=== PATIENT | female | born 1995 | race Two or more races ===

== ENCOUNTER 2020-08-07 14:18 | Emergency (ER) | payer OTHER ==
[~2020-08-07] VITALS: Ht 177.8 cm; Wt 88.9 kg
--- NOTE | 2020-08-07 14:40 | NUR ---
Pt denies any medical hx. Wears glasses at baseline. States ALBA and right eye severe blurred vision started 3 days ago. Denies black in her vision field. VAs for R eye, pt stated "I can't even see the paper."
[2020-08-07 15:28] LABS: BASOPHILS % (AUTO) 0 % (0-1); EOSINOPHILS % (AUTO) 1 % (1-7); LYMPHOCYTES % (AUTO) 18 % (22-44); MEAN CORPUSCULAR HEMOGLOBIN 28.2 pg (27.0-34.8); MEAN CORPUSCULAR HGB CONC 33.7 g/dL (32.4-35.8); MEAN PLATELET VOLUME 9.1 fL (7.4-10.4); MONOCYTES % (AUTO) 4 % (2-9); NEUTROPHILS % (AUTO) 77 % (42-75); PLATELET COUNT 229 x10^3/uL (130-400); RED BLOOD COUNT 4.82 x10^6/uL (3.82-5.3); RED CELL DISTRIBUTION WIDTH 13.1 % (9.6-15.2)
[2020-08-07 15:30] LABS: MD NO
[2020-08-07 15:40] LABS: ALBUMIN 3.8 g/dL (3.4-5.0); ANION GAP 7 mmol/L (5-15); CALCIUM 9.4 mg/dL (8.5-10.1); CHLORIDE 110 mmol/L (98-107)
[2020-08-07 15:41] LABS: CREATININE 0.98 mg/dL (0.55-1.02)
--- NOTE | 2020-08-07 16:12 | NUR ---
Pt remains in MRI.
[2020-08-07] MEDS ORDERED: GADOTERATE 10 MMOL/20ML SYR ONE (16:14)
[2020-08-07 16:55] LABS: HCT (SEDRATE) 40.6 % (34.6-47.8)
--- NOTE | 2020-08-07 17:03 | NUR ---
Optomology at bedside.
--- NOTE | 2020-08-07 17:41 | NUR ---
Law back to bedside to update pt on POC.
[2020-08-07 17:59] VITALS: BP 125/81
[2020-08-07] MEDS ORDERED: methylPREDNISolone SOD SUCC 125 MG/2 ML IV SCH (18:00)
--- NOTE | 2020-08-07 19:00 | NUR ---
Pt sitting up in bed, on laptop, no complaints.
--- NOTE | 2020-08-07 19:00 | NUR ---
Bedside report to [facility].
[2020-08-08 15:05] LABS: ANA SCREEN NEGATIVE (Negative)
== END 2020-08-07 20:12 | disposition other institution (70) ==
LOC: ED 20:00
DX: H54.61 Unqualified visual loss, right eye, normal vision left eye (principal); H46.9 Unspecified optic neuritis
CPT/HCPCS: 36415; 70543; 80048; 82040; 82164; 82607; 83520; 85025; 85549; 85651; 86038; 86140; 86255; 86592; 96365; 99284; A9575; J2930; 99285

== ENCOUNTER 2020-08-08 15:32 | Emergency (ER) | payer OTHER ==
[~2020-08-08] VITALS: Ht 177.8 cm; Wt 88.0 kg
--- NOTE | 2020-08-08 15:58 | NUR ---
Pt comes in today with requests from Dr. Raines to get brain CT, and was seen yesterday for a dose of solumedrol IV and Dr. Bar told her to come back again today for another dose. Pt reports her pain today in right eye is 4/10, yesterday was 5/10. Reports the pain mostly occurs when she moves her eye. Vision is unchanged. Dr. Raines told pt she likely has neuritis and MS.
[2020-08-08] MEDS ORDERED: SODIUM CHLORIDE FLUSH 10ML SYR IVF ONE (16:30)
--- NOTE | 2020-08-08 16:48 | NUR ---
IV started, 20 g right AC.
[2020-08-08] MEDS ORDERED: methylPREDNISolone SOD SUCC 125 MG/2 ML IVPush ONE (17:00)
--- NOTE | 2020-08-08 17:14 | NUR ---
1000 mg IV push solumedrol ordered, called pharmacy to request drip instead. Pharmacy confirming and changing order, reports they will send IV piggy back down.
--- NOTE | 2020-08-08 17:42 | NUR ---
Solumedrol drip arrived from pharmacy.
--- NOTE | 2020-08-08 17:53 | NUR ---
IV solumedrol infusion running.
[2020-08-08] MEDS ORDERED: LORazepam 1MG TABLET PO ONE (18:00)
[2020-08-08 18:30] VITALS: BP 120/67
--- NOTE | 2020-08-08 18:32 | NUR ---
solumedrol infusion complete, IV removed. Pt agrees with and understands discharge plan and instructions.
== END 2020-08-08 18:39 | disposition home or self-care (01) ==
LOC: ED 15:48
DX: H46.9 Unspecified optic neuritis (principal); H54.61 Unqualified visual loss, right eye, normal vision left eye
CPT/HCPCS: 96365; 99284; J2930

== ENCOUNTER 2020-08-09 15:30 | Emergency (ER) | payer OTHER ==
[~2020-08-09] VITALS: Ht 177.8 cm; Wt 98.2 kg
[2020-08-09 15:45] VITALS: BP 123/48
--- NOTE | 2020-08-09 16:01 | NUR ---
PT BROUGHT BACK TO ROOM FROM TRIAGE. PT STATES THAT SHE HAS BEEN DIAGNOSED WITH OPTIC NEURITIS AND IS HERE FOR HER DOSE OF SOLUMEDROL. PT WAS SEEN IN THE ER ON FRIDAY AND LAST FRIDAY AND RECEIVED A DOSE OF SOLUMEDROL BOTH DAYS AND IS HER FOR HER THIRD AND FINAL DOSE.
[2020-08-09] MEDS ORDERED: methylPREDNISolone SOD SUCC 40 MG/ML IV SCH (16:30)
--- NOTE | 2020-08-09 17:37 | NUR ---
DISCHARGE INSRUCTIONS REVIEWED WITH PT. ALL QUESTIONS ANSWERED AT THIS TIME.
== END 2020-08-09 17:55 | disposition home or self-care (01) ==
LOC: ED 17:05
DX: H46.9 Unspecified optic neuritis (principal); H54.7 Unspecified visual loss; Z79.899 Other long term (current) drug therapy
CPT/HCPCS: 99281

== ENCOUNTER 2020-09-15 10:52 | Outpatient (CLI) | payer OTHER ==
[2020-09-15 11:10] LABS: BASOPHILS % (AUTO) 1 % (0-1); EOSINOPHILS % (AUTO) 2 % (1-7); LYMPHOCYTES % (AUTO) 41 % (22-44); MEAN CORPUSCULAR HEMOGLOBIN 28.6 pg (27.0-34.8); MEAN CORPUSCULAR HGB CONC 33.7 g/dL (32.4-35.8); MEAN PLATELET VOLUME 8.6 fL (7.4-10.4); MONOCYTES % (AUTO) 9 % (2-9); NEUTROPHILS % (AUTO) 48 % (42-75); PLATELET COUNT 314 x10^3/uL (130-400); RED BLOOD COUNT 4.82 x10^6/uL (3.82-5.3); RED CELL DISTRIBUTION WIDTH 13.4 % (9.6-15.2)
[2020-09-15 11:23] LABS: ALANINE AMINOTRANSFERASE 25 U/L (12-78); ALBUMIN 3.8 g/dL (3.4-5.0); ANION GAP 5 mmol/L (5-15); CHLORIDE 110 mmol/L (98-107); CREATININE 0.92 mg/dL (0.55-1.02)
[2020-09-15 11:26] LABS: ALKALINE PHOSPHATASE 52 U/L (45-117); BILIRUBIN,TOTAL 0.4 mg/dL (0.2-1.0); TOTAL PROTEIN 7.7 g/dL (6.4-8.2)
== END 2020-09-15 23:59 | disposition home or self-care (01) ==
LOC: LAB 10:52
PROVIDERS: ATTEND Psychiatry & Neurology Neurology
DX: G35 Multiple sclerosis (principal); H46.11 Retrobulbar neuritis, right eye
CPT/HCPCS: 36415; 80053; 85025

== ENCOUNTER → 2020-10-03 | Outpatient (CLI) | payer OTHER ==
[2020-10-03 14:49] LABS: FOLATE LEVEL 17.6 ng/mL (3.1-17.5); FREE T4 (FREE THYROXINE) 1.08 ng/dL (0.76-1.46)
== END | disposition home or self-care (01) ==
LOC: LAB 14:07
PROVIDERS: ATTEND Nurse Practitioner Psychiatric/Mental Health
DX: R53.83 Other fatigue (principal); E55.9 Vitamin D deficiency, unspecified
CPT/HCPCS: 36415; 82306; 82746; 84439; 84443; 84481; 86376; 86800

== ENCOUNTER 2020-10-27 12:13 | Day surgery (SDC) | payer OTHER ==
[~2020-10-27] VITALS: Ht 177.8 cm; Wt 89.6 kg
[2020-10-27 12:50] VITALS: BP 125/84
[2020-10-27] MEDS ORDERED: LIDOCAINE-MPF 1%, 5ML ONE ×3 (13:12→14:31)
[2020-10-27] MEDS ORDERED: LIDOCAINE 1%, 20ML ONE (14:28)
[2020-10-27 16:19] LABS: PROTHROMBIN TIME 10.7 Seconds (9.6-11.5)
[2020-10-27 16:20] LABS: GLUCOSE, CSF 49 mg/dL (40-80); TOTAL PROTEIN,CSF 22 mg/dL (15-45)
== END 2020-10-27 18:00 | disposition home or self-care (01) ==
LOC: OUT 12:13
PROVIDERS: ATTEND Nurse Practitioner Family
DX: G35 Multiple sclerosis (principal); H46.9 Unspecified optic neuritis; E66.3 Overweight; Z68.26 Body mass index [BMI] 26.0-26.9, adult; Z79.01 Long term (current) use of anticoagulants
CPT/HCPCS: 36415; 62328; 82945; 84157; 85610; 85730; 86645; 86695; 86696; 86762; 86777; 86778; 89051

== ENCOUNTER 2020-10-30 08:48 | Outpatient (CLI) | payer OTHER ==
[2020-10-30] MEDS ORDERED: LIDOCAINE-MPF 1%, 5ML ONE (08:57)
== END 2020-10-30 23:59 | disposition home or self-care (01) ==
LOC: RAD 08:48
PROVIDERS: ATTEND Nurse Practitioner Family
DX: G35 Multiple sclerosis (principal); M62.81 Muscle weakness (generalized)
CPT/HCPCS: 62273; 77003

== ENCOUNTER 2021-03-05 14:11 | Emergency (ER) | payer OTHER ==
[~2021-03-05] VITALS: Ht 177.8 cm; Wt 87.8 kg
[2021-03-05 14:47] VITALS: BP 121/76
[2021-03-05] MEDS ORDERED: BACITRACIN ZINC OINT 500U/GM, 0.9 GM TP ONE (17:00)
[2021-03-05] MEDS ORDERED: METHOCARBAMOL 750 MG TABLET PO ONE (17:00)
[2021-03-05] MEDS ORDERED: METHOCARBAMOL 750 MG TABLET ONE (17:24)
== END 2021-03-05 17:52 | disposition home or self-care (01) ==
LOC: ED 17:46
DX: S16.1XXA Strain of muscle, fascia and tendon at neck level, initial encounter (principal); S33.5XXA Sprain of ligaments of lumbar spine, initial encounter; S23.3XXA Sprain of ligaments of thoracic spine, initial encounter; S70.01XA Contusion of right hip, initial encounter; S40.012A Contusion of left shoulder, initial encounter; S80.01XA Contusion of right knee, initial encounter; S20.211A Contusion of right front wall of thorax, initial encounter; V49.09XA Driver injured in collision with other motor vehicles in nontraffic accident, initial encounter; Y93.89 Activity, other specified; Y92.89 Other specified places as the place of occurrence of the external cause; Y99.8 Other external cause status
CPT/HCPCS: 71045; 71120; 72110; 72190; 99284